=== PATIENT | female | born 1960 | race Caucasian/White ===

== ENCOUNTER 2019-08-10 13:01 | Outpatient (CLI) | payer BC ==
--- NOTE | 2019-08-10 14:21 | MMO ---
Bilateral MAMMO Bilat Screen [facility]. CLINICAL HISTORY: Patient is 59 years old and is seen for screening. The patient has the following family history of breast cancer: maternal grandmother, at age 60. The patient has a history of melanoma in February,. The patient has a history of right Cyst Aspiration - benign. VIEWS: The views performed were: bilateral craniocaudal with tomosynthesis and bilateral mediolateral oblique with tomosynthesis. FILMS COMPARED: The present examination has been compared to prior imaging studies performed at [facility] on 03/29/2015, 05/12/2016 and 05/18/2017, and at [facility] on 05/19/2013. This study has been interpreted with the assistance of computer-aided detection. MAMMOGRAM FINDINGS: The breasts are extremely dense, which may lower the sensitivity of mammography. There are benign appearing calcifications seen in both breasts. There are no suspicious masses, suspicious calcifications, or new areas of architectural distortion. IMPRESSION: THERE IS NO MAMMOGRAPHIC EVIDENCE OF MALIGNANCY. A ROUTINE FOLLOW-UP MAMMOGRAM IN 1 YEAR IS RECOMMENDED. THE RESULTS OF THIS EXAM WERE SENT TO THE PATIENT. ACR BI-RADS Category 2 - Benign finding MAMMOGRAPHY NOTE: 1. A negative mammogram report should not delay a biopsy if a dominant of clinically suspicious mass is present. 2. Approximately 10% to 15% of breast cancers are not detected by mammography. 3. Adenosis and dense breasts may obscure an underlying neoplasm. Reported by: LOLI SÁNCHEZ MD Electonically Signed: [id number]
--- NOTE | 2019-08-10 14:39 | BD ---
DEXA BONE DENSITY BONE SCAN: HISTORY: A 59-year-old female. Screening study. LUMBAR SPINE BMD (g/cm2) T-SCORE Z-SCORE L1 0.828 -1.5 0.3 L2 0.928 -0.9 0.4 L3 1.004 -7.0 0.6 L4 0.884 -1.6 -0.2 FEMORAL NECK 0.701 -1.3 -0.1 TOTAL FEMUR 0.937 0.0 0.0 IMPRESSION: 1. Lumbar spine WHO classification is osteopenia. Fracture risk is increased. 2. Femoral neck WHO classification is osteopenia. The 10 year fracture risk for a major osteoporotic fracture is 6.9% and for a hip fracture is 0.5%. POS: OFF
== END 2019-08-10 13:02 | disposition home or self-care (01) ==
LOC: BICMAMMO 13:01
PROVIDERS: ATTEND Family Medicine
DX: Z12.31 Encounter for screening mammogram for malignant neoplasm of breast (principal); Z13.820 Encounter for screening for osteoporosis; M85.89 Other specified disorders of bone density and structure, multiple sites
CPT/HCPCS: 77063; 77067; 77080

== ENCOUNTER 2021-10-29 10:15 | Outpatient (CLI) | payer BC | END 2021-10-29 10:16 | disposition home or self-care (01) | LOC: BICMAMMO 10:15 | PROVIDERS: ATTEND Family Medicine | DX: Z12.31 Encounter for screening mammogram for malignant neoplasm of breast (principal); Z80.3 Family history of malignant neoplasm of breast; Z85.820 Personal history of malignant melanoma of skin | CPT/HCPCS: 77063; 77067 ==

== ENCOUNTER 2022-12-30 10:28 | Outpatient (CLI) | payer BC | END 2022-12-30 10:29 | disposition home or self-care (01) | LOC: BICMAMMO 10:28 | PROVIDERS: ATTEND Family Medicine | DX: Z12.31 Encounter for screening mammogram for malignant neoplasm of breast (principal) | CPT/HCPCS: 77063; 77067 ==

== ENCOUNTER 2024-03-21 10:46 | Outpatient (CLI) | payer BC | END 2024-03-21 10:47 | disposition home or self-care (01) | LOC: BICMAMMO 10:46 | PROVIDERS: ATTEND Family Medicine | DX: Z12.31 Encounter for screening mammogram for malignant neoplasm of breast (principal); Z80.3 Family history of malignant neoplasm of breast; Z85.820 Personal history of malignant melanoma of skin | CPT/HCPCS: 77063; 77067 ==

== ENCOUNTER 2025-08-10 13:36 | Outpatient (CLI) | payer BC | END 2025-08-10 13:37 | disposition home or self-care (01) | LOC: BICMAMMO 13:36 | PROVIDERS: ATTEND Nurse Practitioner Family | DX: Z12.31 Encounter for screening mammogram for malignant neoplasm of breast (principal); Z78.0 Asymptomatic menopausal state; Z80.3 Family history of malignant neoplasm of breast; R92.333 Mammographic heterogeneous density, bilateral breasts; M85.89 Other specified disorders of bone density and structure, multiple sites | CPT/HCPCS: 77063; 77067; 77080 ==